=== PATIENT | male | born 1950 | race Caucasian/White ===

== ENCOUNTER 2019-04-27 12:55 | Emergency (ER) | payer MEDICARE, BC ==
[2019-04-27 13:00] VITALS: BP 146/70
--- NOTE | 2019-04-27 13:04 | ED Physician Documentation ---
History of Present Illness - Stated complaint Stated Complaint: SORE THROAT/SOA - Chief complaint Chief Complaint: Heent - History obtained from History obtained from: Patient - History of Present Illness Timing: Yesterday - Additonal information Additional information: Patient is a previously healthy 68-year-old male presenting with sore throat for the past 1 day. Patient denies ear pain, headache, nasal congestion or rhinorrhea. Patient denies cough or fever, but reports that he feels that he is taking shallow breaths. Patient denies other shortness of breath or chest pain. No other improving or worsening factors noted. Review of Systems Constitutional: denies: Fever Ears: denies: Ear pain Nose: denies: Rhinorrhea / runny nose, Congestion Throat: reports: Sore throat Cardiac: denies: Chest pain / pressure Respiratory: denies: Dyspnea, Cough PD PAST MEDICAL HISTORY - Past Medical History Past Medical History: Yes Endocrine/Autoimmune: Other (Mediterranean diabetes) - Past Surgical History Past Surgical History: No - Allergies Allergies/Adverse Reactions: Allergies Allergy/AdvReac Type Severity Reaction Status Date / Time No Known Drug Allergies Allergy Verified 04/27/19 12:59 PD ED PE NORMAL - Vitals Vital signs reviewed: Yes - General General: Alert and oriented X 3, No acute distress, Well developed/nourished - HEENT HEENT: Atraumatic, Moist mucous membranes, Pharynx benign (No evidence of uvulitis, uvular deviation, peritonsillar abscess, tonsillitis, pharyngitis or cobblestoning.), Dentition benign - Neck Neck: Supple, no meningeal sign - Cardiac Cardiac: RRR, No murmur - Respiratory Respiratory: No respiratory distress, Clear bilaterally - Derm Derm: Normal color, Warm and dry, No rash - Extremities Extremities: No deformity, No tenderness to palpate - Neuro Neuro: Alert and oriented X 3, No motor deficit, No sensory deficit - Psych Psych: Normal mood, Normal affect Results - Vitals Vitals: Vital Signs - 24 hr 04/27/19 12:56 Temperature 36.2 C L Heart Rate 65 Respiratory 19 Rate Blood Pressure 146/70 H O2 Saturation 99 Oxygen O2 Source Room air - Labs Labs: Laboratory Tests 04/27/19 13:01 Group A Strep Rapid Negative PD MEDICAL DECISION MAKING - ED course Complexity details: reviewed results, re-evaluated patient, considered differential, d/w patient ED course: Patient presenting with sore throat that is likely viral in nature particularly given physical exam findings. Do not find obvious signs of bacterial t onsillitis, pharyngitis, peritonsillar abscess, uvulitis or changes to indicate retropharyngeal abscess. Do not have high concerns for facial or dental abscess, Drew's angina, or pneumonia. Do not feel patient is at high risk for PE or other cardiac etiologies at this time. Patient did request strep testing, which returned negative. Discussed viral etiology versus bacterial etiology, supportive cares for such, return precautions and follow-up. Patient voiced understanding and is comfortable with discharge plan. Departure - Departure Disposition: 01 Home, Self Care Clinical Impression: Viral URI Condition: Good Instructions: ED Viral Syndrome Follow-Up: Travon Cohen MD [Primary Care Provider] - Within 3 Days Comments: Recommend supportive care such as ibuprofen/Tylenol, Listerine or salt water gargles, healthy diet, rest, and follow-up with your primary care physician in next 2 to 3 days. Return to ED sooner if experience worsening symptoms including more pain, fever, difficulty swallowing, difficulty breathing, productive cough, chest pain, or other concerns. Discharge Date/Time: 04/27/19 13:50
== END 2019-04-27 13:50 | disposition home or self-care (01) ==
LOC: ED 12:55
DX: J06.9 Acute upper respiratory infection, unspecified (principal)
CPT/HCPCS: 87070; 87430; 99282; 99283

== ENCOUNTER 2019-09-21 13:49 | Outpatient (CLI) | payer MEDICARE, BC ==
--- NOTE | 2019-09-23 01:00 | XRAY Report ---
Reason: PAIN IN RIGHT HAND Procedure Date: 09/21/2019 Accession Number: [id number] / [id number] Procedure: XRS - Hand 3 View RT CPT Code: Final Report FULL RESULT: EXAM: RIGHT HAND RADIOGRAPHY EXAM DATE: 09/21/2019 02:16 PM. CLINICAL HISTORY: Decreased range of motion and limited voluntary movement. History of severed tendon over the third MCP joint as a child. COMPARISON: None. TECHNIQUE: 3 views. FINDINGS: Bones: Normal. No fractures or bone lesions. Joints: Spurring of the IP joints, worst third DIP joint, and spurring and narrowing of MTP joints, worst third MTP joint. No subluxations. Soft Tissues: Unremarkable. IMPRESSION: Osteoarthritis, worst third MTP joint and third DIP joint. RADIA
== END 2019-09-21 13:50 | disposition home or self-care (01) ==
LOC: DI.S 13:49
PROVIDERS: ATTEND Nurse Practitioner Family
DX: M19.041 Primary osteoarthritis, right hand (principal)

== ENCOUNTER 2020-07-30 11:01 | Outpatient (CLI) | payer MEDICARE, BC ==
--- NOTE | 2020-07-30 12:18 | XRAY Report ---
PROCEDURE: Cervical Spine 2 View INDICATIONS: CHRONIC BACK PAIN TECHNIQUE: 4 view(s) of the cervical spine were acquired. COMPARISON: None. FINDINGS: Bones: No fractures or dislocations to the T1 level. The lateral masses of C1 appear intact on the odontoid view. No suspicious bony lesions. The degenerative disc disease and facet osteoarthritis a long the cervical spine is moderate in severity and is present from C3-4 through C7-T1. It is most pr onounced at C4-5 and C5-6. No subluxation is associated. No prior trauma found. Soft tissues: No prevertebral soft tissue swelling. IMPRESSION: Moderate severity degenerative disc disease and facet osteoarthritis, without subluxation or prior trauma. Spinal and foraminal stenosis from C3-4 through C7-T1 likely is present, and depend ing on the clinical status follow-up by MR scanning utilized for more accurate assessment. Reviewed by: Rush Grimes MD on 07/30/2020 12:17 PM PDT Approved by: Rush Grimes MD on 07/30/2020 12:17 PM PDT Station ID: [id number]
--- NOTE | 2020-07-30 12:20 | XRAY Report ---
PROCEDURE: Thoracic Spine 2 View INDICATIONS: CHRONIC BACK PAIN TECHNIQUE: 3 views of the thoracic spine were acquired. COMPARISON: None. FINDINGS: Bones: No fractures or dislocations. No suspicious bony lesions. 12 pairs of ribs are noted, and a ppear intact where visualized. There is mild to moderate degenerative disc disease seen over the mid dle third of the thoracic spine and no compression fracture or subluxation is associated. Soft tissues: No paravertebral stripe thickening. IMPRESSION: Mild degenerative disc disease, middle third thoracic spine, no compression fracture. Reviewed by: Rush Grimes MD on 07/30/2020 12:18 PM PDT Approved by: Rush Grimes MD on 07/30/2020 12:18 PM PDT Station ID: [id number]
--- NOTE | 2020-07-30 12:24 | XRAY Report ---
PROCEDURE: Lumbar Spine 2 View INDICATIONS: CHRONIC BACK PAIN TECHNIQUE: 3 views of the lumbar spine were acquired. COMPARISON: Prior thoracic spine plain films same day reviewed.. FINDINGS: Bones: 5 [id number] vertebrae are present. There is normal bony alignment. No vertebral body compression fractures. No suspicious bony lesions. The degenerative disc disease present is moderat e at L1-2 and L2-3 and mild to moderate at L3-4 and L4-5. It is moderate to moderately severe at L5-S 1. Facet osteoarthritis is moderate at L4-5 and L5-S1, with potential for significant nerve root impi ngement at these 2 levels especially L5-S1. Soft tissues: Overlying bowel gas pattern is normal. No suspicious soft tissue calcifications. IMPRESSION: No compression fracture found. The L4-5 and L5-S1 levels of the lumbosacral spine show s ignificant spinal and foraminal stenosis to the degree that nerve root impingement would be expected especially at L5-S1 but likely also at L4-5. Reviewed by: Rush Grimes MD on 07/30/2020 12:22 PM PDT Approved by: Rush Grimes MD on 07/30/2020 12:22 PM PDT Station ID: [id number]
--- NOTE | 2020-07-30 12:26 | XRAY Report ---
PROCEDURE: Hip w/Pelvis 2-3V LT INDICATIONS: PAIN OF LEFT HIP JOINT TECHNIQUE: AP pelvis with lateral view(s) of the bilateral hip(s). COMPARISON: None. FINDINGS: Bones: No fractures or dislocations, but there is a mild degree of degenerative hip joint space narr owing, without osteophytic spurring. Pelvic ring appears intact. No suspicious bony lesions. Soft tissues: The visualized bowel gas pattern is normal. No suspicious soft tissue calcifications. IMPRESSION: Only a mild degree of degenerative hip joint space narrowing is noted symmetric bilatera lly, without trauma. Reviewed by: Rush Grimes MD on 07/30/2020 12:25 PM PDT Approved by: Rush Grimes MD on 07/30/2020 12:25 PM PDT Station ID: [id number]
== END 2020-07-30 11:02 | disposition home or self-care (01) ==
LOC: DI.S 11:01
PROVIDERS: ATTEND Nurse Practitioner Family
DX: M47.812 Spondylosis without myelopathy or radiculopathy, cervical region (principal); M50.31 Other cervical disc degeneration, high cervical region; M48.02 Spinal stenosis, cervical region; M51.34 Other intervertebral disc degeneration, thoracic region; M47.816 Spondylosis without myelopathy or radiculopathy, lumbar region; M51.36 Other intervertebral disc degeneration, lumbar region; M48.061 Spinal stenosis, lumbar region without neurogenic claudication; M51.37 Other intervertebral disc degeneration, lumbosacral region; M48.07 Spinal stenosis, lumbosacral region; M16.0 Bilateral primary osteoarthritis of hip
CPT/HCPCS: 72040; 72070; 72100

== ENCOUNTER 2020-08-30 12:54 | Outpatient (CLI) | payer MEDICARE, BC ==
--- NOTE | 2020-09-01 09:49 | MRI Report ---
PROCEDURE: Cervical Spine W/O INDICATIONS: CERVICAL SPINAL STENOSIS, LUMBAR SPINAL STENOSIS TECHNIQUE: Noncontrast sagittal T1 spin echo and T2 fast spin echo, sagittal STIR, foraminal oblique sagittal T2 fast spin echo, and axial gradient echo or T2 fast spin echo through the cervical spine. COMPARISON: None. FINDINGS: Image quality: Excellent. Alignment and Curvature: Normal configuration of the craniocervical junction. Normal cervical spine v ertebral body height and alignment. Bone Marrow: Marrow demonstrates normal overall signal. Spinal Cord: Visualized spinal cord has normal size and signal. No cerebellar tonsillar herniation. Regional Soft Tissues: No paravertebral masses. Prevertebral soft tissues are normal in thickness. C2-C3: No spinal canal or neural foraminal stenosis. C3-C4: Posterior disc-osteophyte complex flattens the ventral thecal sac and also slightly flattens the ventral cord. Facet and uncovertebral hypertrophy contribute to moderate bilateral neural forami nal stenosis. C4-C5: Posterior disc-osteophyte complex produces moderate spinal canal stenosis in conjunction with buckling of the ligamentum flavum. Facet and uncovertebral hypertrophy contribute to moderate-severe bilateral neural foraminal stenosis. C5-C6: Posterior discussed by complex flattens the ventral cord. Facet and uncovertebral hypertrophy contribute to mild bilateral neural foraminal stenosis. C6-C7: Posterior disc-ossify complex slightly flattens the right paracentral cord. No significant ne ural foraminal stenosis. C7-T1: No spinal canal or neural foraminal stenosis. IMPRESSION: Moderate spinal canal stenosis at C4-C5 with mild spinal canal stenosis at C3-C4 and C5-C6. Varying degrees of neural foraminal stenosis, moderate-severe bilaterally at C4-C5 and moderate bilat erally at C3-C4. Reviewed by: Hector Brink MD on 09/01/2020 9:48 AM PST Approved by: Hector Brink MD on 09/01/2020 9:48 AM PST Station ID: [id number]
--- NOTE | 2020-09-01 09:59 | MRI Report ---
PROCEDURE: Thoracic Spine W/O INDICATIONS: CERVICAL SPINAL STENOSIS, LUMBAR SPINAL STENOSIS TECHNIQUE: Noncontrast sagittal T1 spine echo and T2 fast spin echo, sagittal STIR, axial T1 and T2 fast spin ec ho through the thoracic spine. COMPARISON: None. FINDINGS: Image quality: Excellent. Bones: There is normal bony alignment. No significant degenerative changes, spinal canal stenosis, or neural foraminal stenosis. Marrow is of normal overall signal other than mild discogenic marrow ed ciro at L1-L2. Spinal Cord: Visualized spinal cord is normal in size and signal. Regional Soft Tissues: No paravertebral masses. IMPRESSION: No thoracic spinal canal or neural foraminal stenosis. Reviewed by: Hector Brink MD on 09/01/2020 9:58 AM PST Approved by: Hector Brink MD on 09/01/2020 9:58 AM PST Station ID: [id number]
--- NOTE | 2020-09-01 10:03 | MRI Report ---
PROCEDURE: Lumbar Spine W/O INDICATIONS: LUMBAR SPINAL STENOSIS TECHNIQUE: Noncontrast sagittal T1 spin echo and T2 fast echo, sagittal STIR, axial T1 and T2 fast spin echo thr ough the lumbar spine. In cases with scoliosis, additional coronal T2 fast spin echo may be performe d. COMPARISON: None. FINDINGS: Image quality: Excellent. Alignment and Curvature: There is normal bony alignment. Bone Marrow: Mild discogenic marrow edema at the L1-L2 an L5-S1 endplates. Otherwise normal bone pari ow signal intensity. Spinal Cord: Conus medullaris terminates at the L1 level. Visualized cord demonstrates normal signa l and size. Regional Soft Tissues: No paravertebral masses. T12-L1: No spinal canal or neural foraminal stenosis. L1-L2: Disc bulge flattens the thecal side without mass effect upon the traversing L2 nerve roots. Foraminal components with disc bulge contribute to mild neural foraminal narrowing on the right L2-L3: Diffuse disc bulge without mass effect upon the traversing nerve roots. Foraminal component s of the disc bulge and mild bilateral neural foraminal stenosis. L3-L4: Disc bulge without spinal canal stenosis or mass effect upon the traversing nerve roots. Marine inal components of the disc bulge and mild bilateral neural foraminal stenosis. L4-L5: Diffuse disc bulge flattens the thecal sac without mass effect on the traversing nerve roots . Foraminal components of this bulge contribute to mild bilateral neural foraminal stenosis. L5-S1: Diffuse disc bulge flattens ventral thecal sac. No mass effect upon the traversing S1 nerve roots. Foraminal components of the disc bulge contribute to mild bilateral foraminal stenosis. IMPRESSION: Mild multilevel multifactorial degenerative changes. No spinal canal stenosis or finding s of focal nerve root impingement. Reviewed by: Hector Brink MD on 09/01/2020 10:02 AM PST Approved by: Hector Brink MD on 09/01/2020 10:02 AM PST Station ID: [id number]
== END 2020-08-30 12:55 | disposition home or self-care (01) ==
LOC: DI 12:54
PROVIDERS: ATTEND Nurse Practitioner Family
DX: M48.02 Spinal stenosis, cervical region (principal); M51.36 Other intervertebral disc degeneration, lumbar region; M51.37 Other intervertebral disc degeneration, lumbosacral region
CPT/HCPCS: 72141; 72146; 72148

== ENCOUNTER 2020-10-14 09:21 | Outpatient (CLI) | payer MEDICARE, BC ==
--- NOTE | 2020-10-14 16:53 | Ultrasound Report ---
PROCEDURE: Aorta Screening INDICATIONS: SCREENING FOR AAA TECHNIQUE: Real time scanning was performed of the aorta and iliac arteries, with image documentatio n. COMPARISON: None FINDINGS: Aorta: Proximal aortic diameter measures 2.4 cm. Mid-aorta measures 2.0 cm. Distal aortic diameter is 1.8 cm. Iliac arteries: Right common iliac artery measures 1.2 cm. Left common iliac artery measures 1.3 cm . IMPRESSION: No aneurysm found. Reviewed by: Rush Grimes MD on 10/14/2020 4:52 PM PST Approved by: Rush Grimes MD on 10/14/2020 4:52 PM PST Station ID: [id number]
== END 2020-10-14 09:22 | disposition home or self-care (01) ==
LOC: DI 09:21
PROVIDERS: ATTEND Family Medicine
DX: Z13.6 Encounter for screening for cardiovascular disorders (principal)

== ENCOUNTER 2022-10-27 11:17 | Day surgery (SDC) | payer MEDICARE, BC ==
[2022-10-27] MEDS ORDERED: LACTATED RINGERS 1,000 ML IV ONE (11:20)
--- NOTE | 2022-10-27 12:48 | ANESTHESIA ---
Pre-Anesthesia VS, & Labs - Diagnosis screening - Procedure colonoscopy Vital Signs: Temp Pulse Resp BP Pulse Ox O2 Flow Rate 36.6 C 56 L 18 125/71 98 10/27/22 11:24 10/27/22 11:24 10/27/22 11:24 10/27/22 11:24 10/27/22 11:24 Height: 5 ft 9 in Weight (kg): 74 kg Body Mass Index: 24.0 BMI Classification: Normal - NPO >8 hours Home Medications and Allergies Home Medications: Ambulatory Orders Sildenafil Citrate [Sildenafil] 1 tab PO DAILY PRN 10/26/22 Sildenafil Citrate [Sildenafil] 1 tab PO DAILY PRN 10/26/22 Allergies/Adverse Reactions: Allergies Allergy/AdvReac Type Severity Reaction Status Date / Time gluten Allergy Cramps Verified 10/26/22 13:24 Anes History & Medical History - Anesthetic History Anesthesia Complications: reports: No previous complications Family history of Anesthesia Complications: Denies Family history of Malignant Hyperthermia: Denies - Medical History Cardiovascular: reports: Other Pulmonary: reports: None Gastrointestinal: reports: GERD Urinary: reports: None Musculoskeletal: reports: Osteoarthritis, Chronic back pain Endocrine/Autoimmune: reports: Other Skin: reports: None Smoking Status: Never smoker - Surgical History Eyes Ears Nose Throat (EENT): reports: Tonsil/Adenoidectomy Orthopedic: reports: Arthroscopic surgery Exam General: Alert, Oriented x3, Cooperative Dental: WNL Mouth Openin Fingerbreadth Neck Mobility: Normal Mallampati classification: I Thyromental Distance: 4-6 cm Respiratory: Lungs clear Cardiovascular: Regular rate Plan Anesthesia Type: General, Total IV Consent for Procedure(s) Verified and Reviewed: Yes Code Status: Attempt Resuscitation ASA classification: 2-Mild systemic disease Is this case an emergency?: No
[2022-10-27] MEDS ORDERED: PROPOFOL 500 MG/50 ML 500 MG/50 ML VIAL ONE (12:52)
[2022-10-27] MEDS ORDERED: LACTATED RINGERS 600 ML IV ONE (13:29)
--- NOTE | 2022-10-27 14:06 | ANESTHESIA POST OP EVALUATION ---
Anesthesia Post Eval - Post Anesthesia Eval Vitals: Last Vital Signs Temp 36.2 C L 10/27/22 13:48 Pulse 50 L 10/27/22 13:48 Resp 16 10/27/22 13:48 BP 100/52 L 10/27/22 13:48 Pulse Ox 100 10/27/22 13:48 O2 Flow Rate CV Function Including HR & BP: Stable Pain Control: Satisfactory Nausea & Vomiting: Negative Mental Status: Baseline Respiratory Status: Airway Patent Hydration Status: Satisfactory Anesthesia Complications: None
[2022-10-27 14:46] VITALS: BP 110/68
== END 2022-10-27 11:18 | disposition home or self-care (01) ==
LOC: SDS 11:17
PROVIDERS: ATTEND Surgery
DX: Z12.11 Encounter for screening for malignant neoplasm of colon (principal); K64.8 Other hemorrhoids; Z86.010 Personal history of colon polyps
CPT/HCPCS: G0105; J7120

== ENCOUNTER 2023-06-06 08:21 | Outpatient (CLI) | payer MEDICARE, BC ==
--- NOTE | 2023-06-06 14:19 | MRI Report ---
PROCEDURE: CERVICAL SPINE WO INDICATIONS: NECK PAIN, ARTHROPATHY OF CERVICAL FACET JOINT TECHNIQUE: Noncontrast sagittal T1 spin echo and T2 fast spin echo, sagittal STIR, foraminal oblique sagittal T2 fast spin echo, and axial gradient echo or T2 fast spin echo through the cervical spine. COMPARISON: 08/30/2020. FINDINGS: Image quality: Excellent. Alignment and Curvature: Trace retrolisthesis of C3 on C4 and C4 on C5. Trace anterolisthesis of C7 o n T1. Bone Marrow: Marrow demonstrates normal overall signal. Spinal Cord: Visualized spinal cord has normal size and signal. No cerebellar tonsillar herniation. Paraspinous Soft Tissues: No paravertebral masses. Prevertebral soft tissues are normal in thicknes s. C2-C3: No canal stenosis or foraminal stenosis. C3-C4: Mild chronic disc height loss. Diffuse disc bulge. AP diameter of the central canal is 9.8 m m. Prominent bilateral uncovertebral joint hypertrophy, left greater than right, resulting in bilater al lateral recess stenosis. Moderate to severe right foraminal narrowing and severe left foraminal na rrowing with bilateral foraminal C4 nerve root impingement. Findings are not significantly changed. C4-C5: Moderate disc space loss. Diffuse posterior disc plus osteophyte with large associated uncove rtebral joint osteophytes. Indentation on the cord. AP diameter of the central canal is 8.6 mm. There is moderately severe right lateral recess stenosis and severe left lateral recess stenosis. There is bilateral uncovertebral joint hypertrophy. There is severe bilateral foraminal narrowing with bilate ral foraminal C5 nerve root impingement. C5-C6: Mild chronic disc height loss. Posterior disc plus osteophyte. Prominent bilateral uncoverteb ral joint hypertrophy. AP diameter of the central canal is 8.8 mm. Moderate to severe right foraminal narrowing with a degree of right foraminal C6 nerve root impingement. Moderate left foraminal narrow ing. C6-C7: Mild disc height loss. Diffuse disc bulge with mild superimposed right paracentral disc protr usion. AP diameter of the central canal is 11.8 mm. There is bilateral uncovertebral joint hypertroph y. Mild bilateral foraminal narrowing. C7-T1: No canal stenosis or significant foraminal stenosis. IMPRESSION: 1. There is diffuse spondylitic change with multilevel disc osteophyte complex and uncovertebral join t hypertrophy. 2. There is multilevel canal stenosis, at least moderate at C4-C5 and C5-C6. 3. Significant multilevel foraminal narrowing. Findings include moderate to severe right foraminal na rrowing and severe left foraminal narrowing at C3-C4, severe bilateral foraminal narrowing at C4-C5, and moderate to severe right foraminal narrowing at C5-C6. Reviewed by: Junior Dotson MD on 06/06/2023 2:18 PM PDT Approved by: Junior Dotson MD on 06/06/2023 2:18 PM PDT Station ID: [id number]
== END 2023-06-06 08:22 | disposition home or self-care (01) ==
LOC: DI 08:21
PROVIDERS: ATTEND Physician Assistant
DX: G57.02 Lesion of sciatic nerve, left lower limb (principal); M70.62 Trochanteric bursitis, left hip; M48.02 Spinal stenosis, cervical region; M47.812 Spondylosis without myelopathy or radiculopathy, cervical region; M76.32 Iliotibial band syndrome, left leg; M50.30 Other cervical disc degeneration, unspecified cervical region

== ENCOUNTER 2023-08-19 13:50 | Outpatient (CLI) | payer MEDICARE, BC ==
--- NOTE | 2023-08-19 19:35 | Ultrasound Report ---
PROCEDURE: Pelvic Limited or F/U INDICATIONS: RECURRENT INGUINAL HERNIA TECHNIQUE: Real-time scanning was performed of the right inguinal region, with image documentation. COMPARISON: None. FINDINGS: Right inguinal hernia sac is noted without evidence of bowel involvement. There is a 2.3 cm fascial d efect noted. IMPRESSION: Right inguinal hernia Reviewed by: Remigio Dyer MD on 08/19/2023 6:34 PM [place] Approved by: Remigio Dyer MD on 08/19/2023 6:34 PM [place] Station ID: [id number]
== END 2023-08-19 13:51 | disposition home or self-care (01) ==
LOC: DI 13:50
PROVIDERS: ATTEND Nurse Practitioner Family
DX: K40.91 Unilateral inguinal hernia, without obstruction or gangrene, recurrent (principal)

== ENCOUNTER 2023-09-12 11:30 | Outpatient (CLI) | payer MEDICARE, BC ==
--- NOTE | 2023-09-12 15:31 | XRAY Report ---
PROCEDURE: Foot 3 View LT INDICATIONS: LEFT FOOT PAIN TECHNIQUE: 3 views of the foot were acquired. COMPARISON: None. FINDINGS: Bones: No fractures or dislocations. Moderate hallux varus deformity of the fifth MTP. Degenerative subcortical cystic change in the first metatarsal head. Minor marginal spur formation. Tiny dorsal s purs at the anterior talus. No suspicious bony lesions. Soft tissues: No suspicious soft tissue calcifications or masses. Mild small vessel calcification. IMPRESSION: 1. Fifth MTP hallux varus. Correlate with region of pain. 2. Mild scattered degenerative changes. 3. Mild peripheral vascular disease. Reviewed by: Kimmy Angel MD on 09/12/2023 3:29 PM PST Approved by: Kimmy Angel MD on 09/12/2023 3:29 PM PST Station ID: [id number]
== END 2023-09-12 11:31 | disposition home or self-care (01) ==
LOC: DI.S 11:30
PROVIDERS: ATTEND Nurse Practitioner Family
DX: M20.32 Hallux varus (acquired), left foot (principal); M19.072 Primary osteoarthritis, left ankle and foot; I73.9 Peripheral vascular disease, unspecified

== ENCOUNTER 2023-12-20 08:30 | Outpatient (CLI) | payer MEDICARE, BC ==
--- NOTE | 2023-12-20 12:09 | XRAY Report ---
PROCEDURE: Hip 2 View LT INDICATIONS: LEFT HIP PAIN TECHNIQUE: 2 view(s) of the hip were acquired. COMPARISON: Pelvic and hip radiographs 07/30/2020. FINDINGS: Bones: No fractures or dislocations. Mild bilateral hip DJD which is not significantly changed. No suspicious bony lesions. The visualized pelvic ring appears intact. Soft tissues: No suspicious soft tissue calcifications or masses. IMPRESSION: Mild bilateral hip DJD. Not significant change compared to 2019. Reviewed by: Andre Craig MD on 12/20/2023 12:08 PM PDT Approved by: Andre Craig MD on 12/20/2023 12:08 PM PDT Station ID: [id number]
== END 2023-12-20 23:59 | disposition home or self-care (01) ==
LOC: DI.WOS 08:30
PROVIDERS: ATTEND Orthopaedic Surgery
DX: M16.12 Unilateral primary osteoarthritis, left hip (principal)

== ENCOUNTER 2024-01-30 09:55 | Outpatient (CLI) | payer MEDICARE, BC ==
--- NOTE | 2024-01-30 17:44 | XRAY Report ---
PROCEDURE: Toe(s) 2+V LT INDICATIONS: PAIN IN LEFT TOE TECHNIQUE: 3 views of the first toe(s) acquired. COMPARISON: 09/12/2023 FINDINGS: Bones: No fractures or dislocations. No suspicious bony lesions. Scattered IP degenerative narrowi ng. Soft tissues: No suspicious soft tissue densities. IMPRESSION: Scattered IP degenerative narrowing. No visualized acute fracture or dislocation. However, occult injury cannot be excluded. Recommend trace rt interval imaging follow-up in 7-10 days as clinically indicated for additional evaluation. Reviewed by: Anastasiia Del Toro MD on 01/30/2024 5:42 PM PDT Approved by: Anastasiia Del Toro MD on 01/30/2024 5:42 PM PDT Station ID: [id number]
== END 2024-01-30 09:56 | disposition home or self-care (01) ==
LOC: DI 09:55
PROVIDERS: ATTEND Orthopaedic Surgery
DX: M79.675 Pain in left toe(s) (principal); M25.872 Other specified joint disorders, left ankle and foot
CPT/HCPCS: 73660